=== PATIENT | female | born 1950 | race Caucasian/White ===

== ENCOUNTER 2024-02-11 13:21 | Outpatient (CLI) | payer MEDICARE, SELFPAY ==
--- NOTE | ~2024-02-11 | CT_ITS ---
EXAMINATION: CT LE RT wo con DATE: 02/11/2024 14:48 INDICATION: Right knee osteoarthritis for preoperative planning TECHNIQUE: High resolution computed tomography (CT) of the right lower extremity from the hip through the ankle was performed without intravenous contrast. Additional sagittal and coronal reconstruction s were performed. Automated exposure control and iterative reconstruction technique were employed. Th e dose-length product was 1618.57 mGy-cm. COMPARISON: None FINDINGS: Alignment is normal. No fracture. There is severe osteoarthritis at the medial compartment of the rig ht knee with severe joint space narrowing evident on the prior weightbearing radiographs and remodeli ng of the articular surfaces on both the medial tibial plateau and weightbearing medial femoral condy le. There is at least mild osteoarthritis at the lateral and patellofemoral compartments with moderat e size marginal osteophytes. There is cortical irregularity including central subchondral osteophytes at the lateral and patellofemoral compartments suggesting regions of high-grade chondromalacia in julius th compartments. Small right knee joint effusion primarily in the medial gutter of the suprapatellar pouch. Prominent loose osteochondral bodies in the suprapatellar pouch along the cephalad margin of t he patella. Visualized lower pelvis is unremarkable with no pathologically enlarged right pelvic or i nguinal lymphadenopathy. There are subcutaneous varicosities at the proximal right calf arising from the greater saphenous vein. Small intramuscular lipoma versus region of focal fatty atrophy in the di stal medial head of the gastrocnemius muscle. IMPRESSION: 1. Severe medial compartment predominant osteoarthritis of the right knee. Reviewed, dictated and finalized at location B.
--- NOTE | 2024-02-11 13:46 | ECG_ITS ---
Test Date: 2024-02-11 13:15:17 Measurements Intervals [place] Rate: P: MD: QRS: QRSD: T: QT: QTc: Interpretive Statements SINUS RHYTHM FREQUENT ATRIAL PREMATURE COMPLEXES BASELINE WANDER- I, II, III ABNORMAL ECG Electronically Signed On 02-11-2024 16:22:32 CDT by Jcarlos Palomo D.O.
[2024-02-11 14:14] LABS: Hematocrit 40.2 % (37.0-47.0); Hemoglobin 13.4 g/dL (12.0-15.0)
[2024-02-11 14:24] LABS: Albumin Level 4.3 g/dL (3.5-5.1); Estimated Glomerular Filt Rate 49; Glucose 117 mg/dL (65-110)
== END 2024-02-11 13:22 | disposition home or self-care (01) ==
LOC: ANHIMG 13:25
PROVIDERS: Visit Provider Orthopaedic Surgery
DX: Z01.818 Encounter for other preprocedural examination (principal); M17.11 Unilateral primary osteoarthritis, right knee; E78.5 Hyperlipidemia, unspecified; I10 Essential (primary) hypertension
CPT/HCPCS: 36415; 73700; 82040; 82565; 82947; 85014; 85018; 93005

== ENCOUNTER 2024-04-20 11:43 | Outpatient (CLI) | payer MEDICARE, SELFPAY ==
[2024-04-20 12:52] LABS: Basophils Percent Auto 0.4 % (0.2-1.2); Eosinophils Absolute Auto 0.1 K/mm3 (0-0.3); Hematocrit 39.8 % (37.0-47.0); Hemoglobin 13.4 g/dL (12.0-15.0); Immature Granulocyte Absolute 0.04 K/mm3 (0.00-0.031); Immature Granulocyte Percent A 0.8 % (0-0.5); Lymphocytes Absolute Auto 0.78 K/mm3 (0.9-3.2); Lymphocytes Percent Auto 15.5 % (18.3-44.2); Mean Corpuscular HGB Conc 33.7 g/dl (32-36); Mean Corpuscular Hemoglobin 31.8 pg (26-34); Mean Corpuscular Volume 94.5 fl (80-100); Mean Platelet Volume 8.9 fl (7.4-10.4); Monocytes Absolute Auto 0.3 K/mm3 (0.1-0.6); Neutrophils Absolute Auto 3.8 K/mm3 (1.3-6.7); Neutrophils Percent Auto 75.3 % (45.5-73.1); Platelet Count Result 221 k/mm3 (150-375); Red Blood Count 4.21 M/mm3 (4.2-5.4)
[2024-04-20 13:06] LABS: Albumin Level 4.5 g/dL (3.5-5.1); Estimated Glomerular Filt Rate > 60; Glucose 102 mg/dL (65-110)
[2024-04-20 13:55] LABS: Urine Cotinine NEGATIVE
[2024-04-20 14:40] LABS: MRSA (PCR) NOT DETECTED (NOT DETECTE)
[2024-04-20 22:52] LABS: Hemoglobin A1C 5.2 % (<5.7)
== END 2024-04-20 11:44 | disposition home or self-care (01) ==
LOC: ANHSURGERY 11:49
PROVIDERS: PCP Internal Medicine; Visit Provider Orthopaedic Surgery
DX: Z01.818 Encounter for other preprocedural examination (principal); M17.11 Unilateral primary osteoarthritis, right knee
CPT/HCPCS: 80307; 82040; 82565; 82947; 83036; 85025; 87641

== ENCOUNTER 2024-05-12 00:15 | Day surgery (SDC) | payer MEDICARE, SELFPAY ==
[2024-04-20 12:02] VITALS: BP 142/71; PULSE 80; RESP 16; TEMP 36.7; O2SAT 100; BMI 31.4
--- NOTE | 2024-04-20 12:22 | PC.NURSE ---
Report to the Outpatient Waiting Room, entrance under the green pavilion located off [facility], at time __06:00am on date __05/12/24 . Planned Procedure Time: ___07:30am .? Time changes happen often and if your time is changed the preop area will call you the afternoon before. - You and your visitor will be asked to self-screen and do not enter if you have any COVID symptoms. Please call surgeon if you need to reschedule. - A mask is optional within the hospital at this time. Patients may have clear liquids (water, carbonated beverages, clear teas, apple juice) until 3 hours prior to surgery with a maximum of 20 ounces. - No food from midnight until time of surgery and no smoking. This includes no chewing gum, candy or mints. (0430am) Take only the following medications with a SIP of water on the morning of surgery: ____Amlodipine DO NOT STOP ANY OF YOUR OTHER PRESCRIPTION MEDICATIONS PRIOR TO SURGERY EXCEPT THE FOLLOWING Medications to discontinue per physician ____Hold all Vitamins and supplements for 3 days preop per Anesthesia Date to take last dose 05/08/24 Please no make-up, nail namibian, hairspray, perfume, deodorant, or body powder the day of surgery.? No jewelry (including any body piercings) or valuables the day of surgery, leave them at home.? Please take a shower or bath the night before, or the morning of, surgery with an antibacterial soap.? Wear comfortable, loose fitting clothing.? - Jewelry must be removed prior to entering the operating room.? Rings and piercings that are not removed may be cut off. - The hospital will not accept responsibility for valuables.? - Please leave all valuables, including medications, at home the day of surgery. If you are going home after surgery, a licensed transportation driver must drive you home.? - NO public transportation without another adult if you receive anesthesia. - We recommend that an adult stay with you for 24 hours following discharge. - We also recommend that you do not drive, make important decision, drink alcoholic beverages, or take any drugs that were not prescribed by your health care provider for at least 24 hours after your discharge time. Follow any additional instructions given to you from your surgeon. Telephone instructions given to _Patient and asked if any additional questions and then verbalized understanding. Patient advised to call surgeon office or pre surgery nurse liaison [phone] if any additional questions.
[2024-05-12] VITALS (14 sets, daily range): BP systolic 114–155; BP diastolic 63–80; PULSE 77–110; RESP 12–18; TEMP 36.1–36.7; O2SAT 91–99; BMI 31.4
--- NOTE | ~2024-05-12 | XR_ITS ---
[id number] Ordering provider: Shiva Montes MD History: . POST-OP, RIGHT CUSTOM TKA . Comparison: None. FINDINGS: BONES: No acute fracture or dislocation. JOINT SPACES: Total knee arthroplasty. SOFT TISSUES: Subcutaneous postoperative changes. IMPRESSION: No acute osseous abnormality right knee. Total knee arthroplasty. Reviewed, dictated and finalized at location A. 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
[2024-05-12] MEDS: LACTATED RINGERS 1,000 ML 30 ML IV CONT ×2 (06:30→09:36)
[2024-05-12] MEDS: ACETAMINOPHEN 500 MG TABLET 1000 MG PO (06:45)
[2024-05-12] MEDS: SODIUM CHLORIDE 0.9% IV 37.7 ML, MORPHINE SULFATE INJ (*CRX) 2 MG, ROPivacaine HCL 1% 2... INFILTRATE (07:06)
--- NOTE | 2024-05-12 07:06 | P.PNAN_ITS ---
Anes - Initial Pre Proc Eval Procedure: Operation Date: 05/12/24 07:30 Proposed Procedures p Right Custom Total Knee Arthroplasty - Shiva Montes MD Date/Time: 05/12/24 07:06 Surgeon: Shiva Montes MD Pre Op Diagnosis: Prim OA Rt Knee Patient Data Age: 74 Gender: F Height: 1.55 m Weight: 75.6 kg Last Vital Signs Temp 36.7 C 04/20/24 12:02 Pulse 80 04/20/24 12:02 Resp 16 04/20/24 12:02 BP 142/71 H 04/20/24 12:02 Pulse Ox 100 04/20/24 12:02 O2 Del Method Room Air 04/20/24 12:02 Allergies Allergy/AdvReac Type Severity Reaction Status Date / Time penicillin G AdvReac Intermediate Nausea and Verified 05/12/24 07:01 Vomiting Home Medications ?Medication ?Instructions ?Recorded ?Confirmed ?Type amlodipine 10 mg tablet 10 mg PO DAILY 12/10/23 04/20/24 History ascorbic acid (vitamin C) 250 mg 250 mg PO DAILY 12/10/23 04/20/24 History tablet cholecalciferol (vitamin D3) 50 50 mcg PO DAILY 12/10/23 04/20/24 History mcg (2,000 unit) capsule clobetasol 0.05 % topical ointment 1 applic topical BID 12/10/23 04/20/24 History multivitamin 1 tablet PO DAILY 12/10/23 04/20/24 History rosuvastatin 5 mg tablet (Crestor) 5 mg PO DAILY 04/20/24 04/20/24 History Patient hx anesthesia problems: none Family hx anesthesia problems: none Results Review: All pre-operative results and documents have been reviewed as part of the pre- operative evaluation. PENDING SALE TO [facility] Past Medical History Medical History Hypertension Hyperlipidemia Family History Family History Father Heart disease Diabetes mellitus Hypertension Cerebrovascular accident Mother Breast cancer Sibling Lymphoma Squamous cell carcinoma Carcinoma of colon Heart disease Social History Social History Smoking status: Never smoker Drinks per week: 14 Substance use: never Do You Feel Safe in your Home?: Yes Lack of Transportation: No Lack of Food: Never True Current Housing: I Have Housing Concerned About Future Housing: No Difficulty Paying Gas/Electric Bills: No Difficulty Paying for Meds: No Currently Unemployed: No Education: High School Diploma/GED Difficulty w/ Childcare or Family Care: No Living arrangements: with family Additional living arrangements comments: Spiritual care concerns: No Anes - Eval Final PreProcedure Day of Procedure 05/12/24 07:06 Patient weight: obese Heart: regular rate and rhythm Lungs: clear to auscultation Airway: Mallampati scale class II Neurological: alert and oriented Last oral intake: >/= 8 hours ASA classification: III Emergent: no Anesthetic plan: proceed Anesthesia type and monitoring: general LMA and standard monitoring Results Review: All pre-operative results and documents have been reviewed as part of the pre- operative evaluation. Informed Consent: The patient's anesthetic plan and its attendant risks and benefits were discussed with the patient/family/POA. Questions were solicited and answers provided to the satisfaction of the patient/family/POA.
[2024-05-12] MEDS: TRANEXAMIC ACID 1,000MG/ISO100 1,000 MG/100 ML BAG 200 MG IVPB (07:07)
--- NOTE | 2024-05-12 07:17 | WPDHPUPDATE1 ---
History and Physical Update Update Date/Time: 05/12/24 07:17 History and Physical has been reviewed, including an updated exam of the patient. There are NO changes in the patient's condition. Risks, benefits, and alternatives have been discussed and questions answered. Patient agrees to proceed with procedure.
[2024-05-12] MEDS: ceFAZolin 2 GM/D5W 50 ML 2 GM/50 ML BAG IVPB ×3 (07:26→23:54)
[2024-05-12] MEDS: TRANEXAMIC ACID 1,000 MG/10 ML AMPUL 1000 MG IV PUSH (09:07)
[2024-05-12] MEDS: SODIUM CHLORIDE 0.9% IV 1,000 ML 125 ML IV CONT (11:51)
[2024-05-12] MEDS: ONDANSETRON INJ 4 MG/2 ML VIAL IV PUSH (11:51)
[2024-05-12] MEDS: ACETAMINOPHEN 325 MG TABLET 650 MG PO ×3 (13:43→23:54)
[2024-05-12] MEDS: ASPIRIN 81 MG ENTERIC TABLET PO ×2 (13:44→21:04)
[2024-05-12] MEDS: FAMOTIDINE 20 MG TABLET PO ×2 (13:44→21:04)
--- NOTE | 2024-05-12 13:45 | W.PM.PROC2 ---
Procedure Note - Detailed Date of Procedure 05/12/24 Pre-op Diagnosis Right knee degenerative arthritis. Post-op Diagnosis Same Procedure Performed Total knee arthroplasty, custom, right. Surgeon Shiva Montes MD Surgeon Partner Karen Frank PA-C Anesthesia General Findings Good bone quality. Optimal fit of the custom implant. 1mm asymmetric poly insert. No collateral ligament releases. Description of Procedure Preoperative antibiotics were given. The limb was prepped and draped in the usual sterile fashion with a well-padded tourniquet high on the thigh. The limb was exsanguinated and the tourniquet inflated to 300 mmHg. A longitudinal incision was created just medial to the patella. A trivector approach to the knee was performed. Arthrotomy was taken down through the joint capsule. No significant releases were initially taken. The femur was exposed and the F1 jig was applied. The coring tool was used to remove the cartilage for the F2 jig to sit flush with the bone. The jig was pinned and the distal cut carefully taken. Caliper measurements confirmed appropriate bony resections according to the preoperative templated plan. The F4 cutting jig for the femur was applied, at the standard rotation. The AP and anterior chamfer cuts were taken. The F5 jig was applied and the posterior chamfer cuts were taken. The tibia was prepared using the T1 jig, after removing cartilage for the jig contact points. Proper alignment was checked with the alignment adriana. The tibia was cut using the T1u guide. Gap balancing was performed. Gap measurements were taken and the knee was trialed. Excellent alignment and soft tissue balancing was confirmed. The posterior cruciate ligament was recessed along the proximal tibia. The patella was cut for resurfacing. Three lug holes were drilled. Meniscal remnants were removed. The trial components were assembled. Excellent range of motion and proper soft tissue balancing were confirmed throughout the full range of motion. Patellar tracking was excellent. The knee was copiously irrigated periodically throughout the procedure. The real implants were cemented into position. Excess cement was carefully removed. The wound was closed in layers with interrupted #1 Vicryl suture, 2-0 strata fix suture, 0 strata fix suture, 2-0 strata fix suture. Steri-Strips placed on the skin with the knee flexed. Sterile bulky dressing applied. The patient was brought to the recovery room in stable condition. There were no complications. Physician assistant professor in family studies, Karen Frank PA-C, required for surgery; including patient positioning, draping, tissue retraction, maintaining instrument position, cement removal, wound closure, and dressing placement. Implants Conformis Custom total knee arthroplasty. Cemented. Cruciate retaining. 6B insert. 32 mm oval patella. Estimated Blood Loss 20 Drains No Complications No immediate complications Condition Stable Disposition PACU [facility] Billing Surgery - Charge Forward: Surgery Billing
--- NOTE | 2024-05-12 14:07 | PC.NURSE ---
This patient, Crys Youngblood, was admitted to [facility] Surg Room 323-02. Report received from LATHA Darden. Patient/family oriented to hospital policies and general routines including ID bracelet, bed and alarms, visiting hours, pain management, procedures, bathroom and other care routines, personal items, smoking policy, room service/diet, and visiting hours. Information on how to activate the Rapid Response Team has been discussed. Patient/Family are encouraged to report perceived risks to care and to ask questions if they do not understand what they are told or what they should do.
[2024-05-12] MEDS: predniSONE 5 MG TABLET PO (17:20)
[2024-05-13 00:54] VITALS: BP 136/71; PULSE 79; RESP 18; TEMP 36.9; O2SAT 95
[2024-05-13 04:54] VITALS: BP 141/62; PULSE 87; RESP 20; TEMP 37.2; O2SAT 97
[2024-05-13] MEDS: ceFAZolin 2 GM/D5W 50 ML 2 GM/50 ML BAG IVPB (06:03)
[2024-05-13] MEDS: ACETAMINOPHEN 325 MG TABLET 650 MG PO (06:03)
[2024-05-13 06:55] LABS: Basophils Percent Auto 0.2 % (0.2-1.2); Hematocrit 34.3 % (37.0-47.0); Hemoglobin 10.6 g/dL (12.0-15.0); Immature Granulocyte Absolute 0.04 K/mm3 (0.00-0.031); Immature Granulocyte Percent A 0.7 % (0-0.5); Lymphocytes Absolute Auto 0.27 K/mm3 (0.9-3.2); Lymphocytes Percent Auto 4.4 % (18.3-44.2); Mean Corpuscular HGB Conc 30.9 g/dl (32-36); Mean Corpuscular Hemoglobin 31.5 pg (26-34); Mean Corpuscular Volume 102.1 fl (80-100); Mean Platelet Volume 9.4 fl (7.4-10.4); Monocytes Absolute Auto 0.4 K/mm3 (0.1-0.6); Monocytes Percent Auto 6.4 % (2.6-8.5); Neutrophils Absolute Auto 5.4 K/mm3 (1.3-6.7); Neutrophils Percent Auto 88.3 % (45.5-73.1); Platelet Count Result 151 k/mm3 (150-375); Red Blood Count 3.36 M/mm3 (4.2-5.4); Red Cell Distribution Width 13.1 % (11.5-14.5); White Blood Count 6.1 K/mm3 (4.5-10.0)
[2024-05-13 07:31] LABS: Anion Gap 3 mmol/L (4-12); Blood Urea Nitrogen 8 mg/dL (7-17); Calcium 8.4 mg/dL (8.4-10.2); Carbon Dioxide 25 mmol/L (22-30); Chloride 108 mmol/L (98-107); Estimated CRCL calculation 66 ml/min; Estimated Glomerular Filt Rate > 60; Glucose 109 mg/dL (65-110); Potassium 3.9 mmol/L (3.4-5.0); Sodium 136 mmol/L (137-145)
--- NOTE | 2024-05-13 07:58 | PM.DS ---
DS: Admitting Diagnosis Discharge Date 05/13/24 Admitting Diagnosis Knee arthritis. DS: Discharge Diagnosis Discharge Diagnosis (1) Status post total right knee replacement: Code(s): Z96.651 - Presence of right artificial knee joint Status: Acute Assessment and Plan: Postop day 1: Right total knee arthroplasty. Patient tolerated procedure well. No complications. Pain manageable with pain medication. No numbness or tingling. We had a lengthy discussion regarding postoperative wound care, limitations, expectations, and exercises. Patient shows good understanding. She has had initial physical therapy and is tolerating it well. DVT prophylaxis: 81 mg baby aspirin b.i.d. for 14 days. Pain medication: Percocet. Prednisone. Meloxicam. Patient has followup appointment with Dr. Montes in 3 weeks. DS: Summary Hospital Course Reason for hospitalization: Total knee arthroplasty Hospital Course: Patient tolerated procedure well. Has had initial PT/OT. Status at Discharge Functional status at discharge: uses cane/walker Overall status at discharge: patient is progressing back to baseline Time Spent with Patient Time attestation: Total time spent providing and/or coordinating discharge services: Exam Narrative: Overweight 74 y/o Female. Resting comfortably in bed. Wearing compression socks bilaterally. Dressing intact with no drainage. Moderate swelling. Small area of ecchymosis. No erythema. Small hematoma. Range of motion limited due to pain. Calf nontender. Neurologic status intact. No varicosities. Distal pulses palpable. DS: Data Data Completed and Pending Labs on day of discharge: Labs from last 24 hours 05/13/24 06:38 WBC 6.1 RBC 3.36 L Hgb 10.6 L Hct 34.3 L MCV 102.1 H MCH 31.5 MCHC 30.9 L RDW 13.1 Plt Count 151 MPV 9.4 Immature Gran % (Auto) 0.7 H Neut % (Auto) 88.3 H Lymph % (Auto) 4.4 L Sherman % (Auto) 6.4 Eos % (Auto) 0.0 Baso % (Auto) 0.2 Lymph # (Auto) 0.27 L Sherman # (Auto) 0.4 Eos # (Auto) 0.0 Baso # (Auto) 0.0 Abs Immat Gran (auto) 0.04 H Absolute Neuts (auto) 5.4 Absolute Nucleated RBC 0.000 Nucleated RBC % 0.0 Sodium 136 L Potassium 3.9 Chloride 108 H Carbon Dioxide 25 Anion Gap 3 L BUN 8 Creatinine 0.60 L Estim Creat Clear Calc 66 Estimated GFR > 60 Glucose 109 Calcium 8.4 Discharge Plan Discharge Patient Disposition: Home, Self-Care Discharge Instructions: See green instruction sheets Patient Language: Venezuelan Stand Alone Forms: General Discharge Instructions Follow-up/Referrals: Karen Frank PA [Physician Superintendent Tests] - Discharge Medications: New aspirin 81 mg tablet,delayed release (DR/EC) 81 mg PO BID 14 Days Qty: 28 0RF meloxicam 15 mg tablet 15 mg PO DAILY Qty: 30 0RF Rx Instructions: Cut in half. Take 1/2 in morning and 1/2 at night. Take with food. Stop if stomach upset. oxycodone-acetaminophen 5-325 mg tablet 1 - 2 tablet PO Q4-6H PRN (Reason: pain) 7 Days Qty: 30 0RF prednisone 5 mg tablet 5 mg PO DAILY 21 Days Qty: 21 0RF Continued amlodipine 10 mg tablet 10 mg PO DAILY ascorbic acid (vitamin C) 250 mg tablet 250 mg PO DAILY cholecalciferol (vitamin D3) 50 mcg (2,000 unit) capsule 50 mcg PO DAILY clobetasol 0.05 % ointment 1 applic topical BID multivitamin Tablet 1 tablet PO DAILY rosuvastatin [Crestor] 5 mg tablet 5 mg PO DAILY
[2024-05-13 08:00] VITALS: PULSE 82; RESP 16; O2SAT 96
[2024-05-13] MEDS: MULTIVITAMINS THERAPEUTIC TAB (*BKC) 1 TABLET PO (08:29)
[2024-05-13] MEDS: ASPIRIN 81 MG ENTERIC TABLET PO (08:29)
[2024-05-13] MEDS: amLODIPine BESYLATE 10 MG TABLET PO (08:29)
[2024-05-13] MEDS: SENNA/DOCUSATE SODIUM TABLET 2 TAB PO (08:29)
[2024-05-13] MEDS: FAMOTIDINE 20 MG TABLET PO (08:29)
[2024-05-13] MEDS: polyethylene glycoL 3350 17 GM POWD.PACK PO (08:29)
[2024-05-13] MEDS: ROSUVASTATIN 5 MG TABLET PO (08:29)
[2024-05-13] MEDS: oxyCODONE/ACETAMINOPHEN (*CRX) 5-325 MG TABLET 1 TABLET PO (08:34)
[2024-05-13 08:54] VITALS: BP 128/53; PULSE 82; RESP 16; TEMP 36.9; O2SAT 96
[2024-05-13 10:26] VITALS: O2SAT 96
== END 2024-05-13 10:53 | disposition home or self-care (01) ==
LOC: ANHSURGERY 08:55 → ANH3MEDSUR 11:18
PROVIDERS: Physician Assistant Surgical; PCP Internal Medicine; Visit Provider Orthopaedic Surgery
PROC: (CPT 27447; principal; 2024-05-12 07:30)
DX: M17.11 Unilateral primary osteoarthritis, right knee (principal); I10 Essential (primary) hypertension; E78.5 Hyperlipidemia, unspecified; E66.9 Obesity, unspecified; Z68.31 Body mass index [BMI] 31.0-31.9, adult
CPT/HCPCS: 27447; 36415; 73560; 80048; 85025; 86850; 86900; 86901; 97110; 97116; 97161; 97165; 97530; 97535; A9270; C1713; C1776; J0171; J0690; J1100; J1171; J1885; J2270; J2405; J2704; J2795; J3010; J7030; J7120; J7512